=== PATIENT | female | born 1970 | race Caucasian/White ===

== ENCOUNTER → 2018-10-29 | Outpatient (CLI) | payer OTHER ==
--- NOTE | 2018-10-29 09:20 | Diagnostic Imaging Report ---
INDICATION: Flank pain, history of renal calculi. TECHNIQUE: Supine view of the abdomen 8:27 AM CORRELATION STUDY: None FINDINGS: Mild severity fecal retention. No bowel obstruction. Several small calcifications noted within the pelvis. Majorities appear to be below the ischial tuberosities favored to be probable phleboliths. There are, however, single small calcifications over bilateral hemipelvis of which distal ureteral stone cannot be excluded given positioning. There is leftward curvature of the lumbar spine. Spina bifida occulta defect at the L5 level with sacralization of the L5. IMPRESSION: 1. Nonobstructive appearing bowel gas pattern. 2. Small calcifications in the pelvis, may very well be phleboliths. However, given location, possibility of distal ureteral stones are not excluded. Dictated by: Dictated on workstation # [id number]
== END ==
LOC: RAD FS 08:37
PROVIDERS: ATTEND Nurse Practitioner Family
DX: N28.89 Other specified disorders of kidney and ureter (principal); R10.9 Unspecified abdominal pain; Z87.442 Personal history of urinary calculi
CPT/HCPCS: 74018

== ENCOUNTER → 2018-10-29 | Outpatient (CLI) | payer OTHER ==
[~2018-10-29] MED LIST: CATHETER FLUSH 10 ML SYR IV PRN; HOLD METFORMIN - RECEIVED CONTRAST 20 ML VIAL IV SCH; IOHEXOL 350 MG/ML 100 ML (OMNIPAQUE 350) VIAL IV ONE; NS 100 ML (IVPB) BAG IV ONE
--- NOTE | 2018-10-29 16:44 | Diagnostic Imaging Report ---
PROCEDURE: CT abdomen and pelvis with contrast. TECHNIQUE: Multiple contiguous axial images were obtained through the abdomen and pelvis after administration of intravenous contrast. Auto Exposure Controls were utilized during the CT exam to meet ALARA standards for radiation dose reduction. INDICATION: Low back pain, flank pain. History of nephrolithiasis. COMPARISON: I have no priors. FINDINGS: The postcontrast enhanced exam showed no definite radiodense urolithiasis. There is questionable punctate interpolar stone on the right which measures 2 mm. This could be vascular. There is no hydroureteronephrosis. No parenchymal edema. No perinephric fluid collection. Renal enhancement and excretion appeared normal bilaterally. The urinary bladder is unremarkable. Pelvic phleboliths extra ureteral noted incidentally. The liver, spleen, adrenals, pancreas, gallbladder, and bile ducts are all negative. There is no bowel obstruction. There is a right adnexal cyst likely dominant follicle. The uterus and adnexa are otherwise unremarkable. IMPRESSION: Questionable punctate nonobstructing right renal calculus. The urinary tract is otherwise normal. No acute appearing abnormality. Probable right ovarian physiologic follicle measuring just less than 2 cm. Dictated by: Dictated on workstation # [id number]
[2018-10-29 16:51] LABS: BASOPHILS % (AUTO) 1 % (0-10); EOSINOPHILS # (AUTO) 0.1 10^3/uL (0.0-0.3); EOSINOPHILS % (AUTO) 1 % (0-10); HEMATOCRIT 35 % (35-52); HEMOGLOBIN 11.8 G/DL (11.5-16.0); LYMPHOCYTES % (AUTO) 17 % (12-44); MEAN CORPUSCULAR HEMOGLOBIN 32 PG (25-34); MEAN CORPUSCULAR HGB CONC 34 G/DL (32-36); MEAN CORPUSCULAR VOLUME 93 FL (80-99); MEAN PLATELET VOLUME 9.5 FL (7.4-10.4); MONOCYTES # (AUTO) 0.4 X 10^3 (0.0-1.0); MONOCYTES % (AUTO) 7 % (0-12); NEUTROPHILS # (AUTO) 4.2 X 10^3 (1.8-7.8); NEUTROPHILS % (AUTO) 74 % (42-75); PLATELET COUNT 245 10^3/uL (130-400); RED CELL DISTRIBUTION WIDTH 11.8 % (10.0-14.5); WHITE BLOOD COUNT 5.7 10^3/uL (4.3-11.0)
[2018-10-29 17:11] LABS: ALANINE AMINOTRANSFERASE 10 U/L (0-55); ALBUMIN 4.1 GM/DL (3.2-4.5); ALKALINE PHOSPHATASE 58 U/L (40-136); BILIRUBIN,TOTAL 1.4 MG/DL (0.1-1.0); BUN/CREATININE RATIO 13; CALCIUM 8.6 MG/DL (8.5-10.1); CARBON DIOXIDE 27 MMOL/L (21-32); CHLORIDE 94 MMOL/L (98-107); CREATININE SERUM 0.62 MG/DL (0.60-1.30); GFR ESTIMATED > 60; GLUCOSE 83 MG/DL (70-105); POTASSIUM 3.8 MMOL/L (3.6-5.0); SODIUM 134 MMOL/L (135-145); TOTAL PROTEIN 6.4 GM/DL (6.4-8.2)
== END ==
LOC: RAD 15:50
PROVIDERS: ATTEND Nurse Practitioner Family
DX: I87.8 Other specified disorders of veins (principal); R10.9 Unspecified abdominal pain; M54.5 Low back pain; Z92.89 Personal history of other medical treatment; Z87.442 Personal history of urinary calculi
CPT/HCPCS: 36415; 74177; 80053; 85025

== ENCOUNTER → 2019-08-15 | Outpatient (CLI) | payer BC, OTHER | LOC: CARD 11:07 | PROVIDERS: ATTEND Family Medicine | DX: R00.2 Palpitations (principal) | CPT/HCPCS: 93306 ==

== ENCOUNTER → 2020-01-17 | Outpatient (CLI) | payer BC ==
[~2020-01-17] MED LIST changes: -CATHETER FLUSH 10 ML SYR IV PRN; +GADOBUTROL 7.5 MMOL/7.5 ML (GADAVIST) VIAL IV ONE; -HOLD METFORMIN - RECEIVED CONTRAST 20 ML VIAL IV SCH; -IOHEXOL 350 MG/ML 100 ML (OMNIPAQUE 350) VIAL IV ONE; -NS 100 ML (IVPB) BAG IV ONE
--- NOTE | 2020-01-17 16:15 | Diagnostic Imaging Report ---
PROCEDURE: MR imaging of the brain with and without contrast. TECHNIQUE: Multiplanar, multisequence MR imaging of the brain was performed with and without contrast. INDICATION: Headaches. COMPARISON: None. FINDINGS: No abnormal intracranial signal or enhancement. No restricted water diffusion. No hemosiderin deposition or evidence of intracranial hemorrhage. Normal morphology including the major midline structures, sella, posterior fossa, and cerebellopontine angle. No hydrocephalus or extra-axial fluid collections. Normal intracranial flow voids. The orbits are negative on this nondedicated exam. Mild mucosal thickening in the maxillary sinuses. The mastoids are clear. Normal bone marrow signal. IMPRESSION: Normal MRI of the brain without and with IV contrast. No acute findings. Dictated by: Dictated on workstation # [id number]
== END ==
LOC: RAD 14:35
PROVIDERS: ATTEND Family Medicine
DX: G43.109 Migraine with aura, not intractable, without status migrainosus (principal); R42 Dizziness and giddiness
CPT/HCPCS: 70553

== ENCOUNTER → 2020-03-14 | Outpatient (CLI) | payer BC | LOC: LABNPT 14:41 | PROVIDERS: ATTEND Family Medicine | DX: J02.9 Acute pharyngitis, unspecified (principal) | CPT/HCPCS: 87070 ==

== ENCOUNTER → 2020-04-10 | Outpatient (CLI) | payer BC ==
--- NOTE | 2020-04-10 10:39 | Diagnostic Imaging Report ---
INDICATION: Shoulder pain. COMPARISON: None. FINDINGS: Multiple radiographic views of the bilateral shoulders were obtained. There is no fracture, dislocation, or other acute bony abnormality identified. The soft tissues appear unremarkable. No radiopaque foreign bodies identified. The visualized portions of the lungs are clear. Note is made of moderate dextroscoliotic deformity of the thoracic spine. IMPRESSION: Unremarkable radiographic exam of the bilateral shoulders. Dictated by: Dictated on workstation # [id number]
== END ==
LOC: RAD FS 09:42
PROVIDERS: ATTEND Nurse Practitioner
DX: M25.512 Pain in left shoulder (principal); M25.511 Pain in right shoulder